=== PATIENT | female | born 1960 | race Caucasian/White ===

== ENCOUNTER → 2020-10-29 14:31 | Outpatient (CLI) | payer OTHER, SELFPAY ==
--- NOTE | 2020-10-29 | DI.US.S_ITS ---
PROCEDURE: US PELVIC COMPLETE INDICATIONS: PELVIC PAIN AND PERINEAL PAIN TECHNIQUE: Real-time scanning was performed of the pelvic organs, with image documentation. Additional endovaginal scanning was necessary due to incomplete visualization of the adnexal and endometrial structures by transabdominal scanning. COMPARISON: [facility], , PELVIC COMPLETE, 10/25/2007, 13:08. FINDINGS: Uterus: Uterus is normal in size at 4.1 x 4.9 x 6.9 cm. The endometrium measures 3.7 mm in combined thickness. There is a single midline anterior intramural fibroid which measures up to 2.7 x 2.5 x 2.9 cm. Ovaries: Right ovary is surgically absent, left ovary measures 2.3 x 1.9 x 2.7 cm and contains a 2.2 cm maximal dimension simple cyst. Other: No pathologic free abdominal or pelvic fluid. IMPRESSION: Simple cyst at the left ovary, right ovary surgically absent. Normal endometrial lining thickness. Note that there is a single uterine fibroid measuring only 2.9 cm in maximal dimension at the midline anteriorly. Dictated by: Laith Rosales M.D. on 10/29/2020 at 16:44 Approved by: Laith Rosales M.D. on 10/29/2020 at 16:45
== END ==
PROVIDERS: PCP Physician Assistant Medical; Referring Provider Physician Assistant Medical; Visit Provider Physician Assistant Medical
DX: R10.2 Pelvic and perineal pain (principal); N83.292 Other ovarian cyst, left side; D25.1 Intramural leiomyoma of uterus; Z90.721 Acquired absence of ovaries, unilateral
CPT/HCPCS: 76830; 76856